=== PATIENT | female | born 1970 | race Native Hawaiian/Other Pacific Islander ===

== ENCOUNTER 2020-10-11 13:03 | Emergency (ER) | payer SELFPAY ==
[2020-10-11 16:36] LABS: Basophils % (Auto) 0.4 % (0.0-1.8); Eosinophils % (Auto) 0.8 % (0.0-4.3); Hematocrit 44.2 % (30.3-42.9); Hemoglobin 14.9 gm/dl (10.1-14.3); Lymphocytes % (Auto) 21.4 % (13.4-35.0); Mean Corpuscular HGB Conc 34 % (30-34); Mean Corpuscular Volume 92 fl (79-97); Monocytes # (Auto) 0.4 K/mm3 (0.0-0.8); Monocytes % (Auto) 7.5 % (0.0-7.3); Platelet Count 265 K/mm3 (140-440); Red Blood Count 4.83 M/mm3 (3.65-5.03); Red Cell Distribution Width 13.8 % (13.2-15.2)
[2020-10-11 16:49] LABS: Bilirubin,Urine NEG (Negative); Blood,Urine SM (Negative); Color,Urine Straw (Yellow); Protein,Urine <15 mg/dL mg/dL (Negative); Urobilinogen,Urine < 2.0 mg/dL (<2.0); WBC,Urine < 1.0 /HPF (0.0-6.0)
[2020-10-11 16:53] LABS: Alanine Aminotransferase 10 units/L (7-56); Albumin 4.6 g/dL (3.9-5); Blood Urea Nitrogen 13 mg/dL (7-17); Calcium 9.7 mg/dL (8.4-10.2); Hemolysis Index 9
[2020-10-11 16:54] LABS: BUN/Creatinine Ratio 33
--- NOTE | 2020-10-11 18:29 | Event Note ---
ED Screening Note Date of service: 10/11/20 Time: 18:28 ED Screening Note: 50-year-old female patient with history of colitis presents to the emergency department with complaints of left lower quadrant pain with associated nausea and vomiting progressively worsening for 1 week. No known sick contacts. No current steroid or antibiotic use. No recent travel. Patient was evaluated by her primary care provider, who prescribed Protonix, which has provided limited relief. Patient states she has experienced similar symptoms on prior occasions. 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 General: Awake, appropriately interactive, no acute distress. Neck: Supple. Full range of motion intact. Cardiovascular: Normal peripheral perfusion. Pulmonary: No respiratory distress. Patient is speaking normally without use of accessory muscles. Abdomen: Soft, nondistended. Left lower quadrant tenderness without rebound or guarding. Skin: No apparent rashes or lesions. Neurological: No facial asymmetry. Speech is clear. Follows commands. Patient is alert and oriented. Musculoskeletal: Moves all four extremities spontaneously with normal range of motion. Psych: Cooperative. Appropriate mood and affect. I have greeted and performed a focused rapid initial assessment of this patient. A comprehensive ED assessment and evaluation of the patient, analysis of all test results, and completion of the medical decision-making process will be conducted by additional ED providers. This initial assessment/diagnostic orders/clinical plan/treatment(s) is/are subject to change based on patients health status, clinical progression and re-assessment. Further treatment and workup at subsequent clinical provider's discretion. Patient/guardian urged not to elope from the ED as their condition may be serious if not clinically assessed and managed.
[2020-10-11] MEDS ORDERED: SODIUM CHLORIDE 0.9% 1000 ML 1,000 ML IV ONE (21:09)
[2020-10-11] MEDS ORDERED: ONDANSETRON 4 MG/2 ML INJ IV ONE (21:09)
[2020-10-11] MEDS ORDERED: MORPHINE 4 MG/1 ML INJ IV ONE (21:09)
--- NOTE | 2020-10-11 21:12 | Emergency Department Report ---
ED Abdominal Pain HPI - General Chief Complaint: Abdominal Pain Stated Complaint: AB PAIN LT SIDE/NAUSEA Time Seen by Provider: 10/11/20 21:09 Source: patient Mode of arrival: Ambulatory Limitations: No Limitations - History of Present Illness Initial Comments: Patient is 50 years old female with no significant past medical history. Patient presented to the ER complaining of left lower quadrant abdominal pain for the last 7 days. Patient stated that pain is getting worse. Patient described her pain as sharp with no radiation. Patient stated the pain associated with nausea and vomiting. Patient denied diarrhea and stated that she feel constipation. Patient also admitted chills but denied any fever. Patient stated that she was seen by her primary care physician 3 days ago and she was given Protonix but no improvement. MD Complaint: abdominal pain -: days(s) (7) Location: LLQ Radiation: none Migration to: no migration Severity scale (0 -10): 10 Quality: sharp Associated Symptoms: nausea, vomiting, constipation - Related Data Home Medications Medication Instructions Recorded Confirmed Last Taken Dicyclomine [Bentyl] 20 mg PO DAILY 03/02/13 03/02/13 03/02/13 Ferrous Sulfate [Feosol 325mg] 325 mg PO TID 03/02/13 03/02/13 03/02/13 Previous Rx's Medication Instructions Recorded Last Taken Type HYDROcodone/APAP 7.5-325 [[place] 1 each PO Q6HR PRN #20 tablet 03/03/13 Unknown Rx 7.5-325 mg TAB] Ondansetron [Zofran Odt] 4 mg PO Q4-6H PRN #12 tab.rapdis 03/03/13 Unknown Rx Allergies Allergy/AdvReac Type Severity Reaction Status Date / Time No Known Allergies Allergy Verified 03/02/13 23:21 ED Review of Systems ROS: Stated complaint: AB PAIN LT SIDE/NAUSEA Other details as noted in HPI Comment: All other systems reviewed and negative Constitutional: chills. denies: fever Respiratory: denies: cough, shortness of breath, SOB with exertion Cardiovascular: denies: chest pain, palpitations Gastrointestinal: abdominal pain, nausea, vomiting, constipation. denies: diarrhea, hematemesis, melena, hematochezia Musculoskeletal: denies: back pain Neurological: denies: headache, weakness, numbness, paresthesias, confusion ED Past Medical Hx - Past Medical History Previous Medical History?: Yes Hx Psychiatric Treatment: Yes (anxiety, depression) Additional medical history: Anemia - Surgical History Past Surgical History?: Yes Additional Surgical History: , TL - Social History Smoking Status: Never Smoker Substance Use Type: None - Medications Home Medications: Home Medications Medication Instructions Recorded Confirmed Last Taken Type Dicyclomine [Bentyl] 20 mg PO DAILY 03/02/13 03/02/13 03/02/13 History Ferrous Sulfate [Feosol 325mg] 325 mg PO TID 03/02/13 03/02/13 03/02/13 History HYDROcodone/APAP 7.5-325 [[place] 1 each PO Q6HR PRN #20 tablet 03/03/13 Unknown Rx 7.5-325 mg TAB] Ondansetron [Zofran Odt] 4 mg PO Q4-6H PRN #12 tab.rapdis 03/03/13 Unknown Rx ED Physical Exam - General Limitations: No Limitations General appearance: alert, in distress - Head Head exam: Present: atraumatic, normocephalic, normal inspection - Eye Eye exam: Present: normal appearance, PERRL - ENT ENT exam: Present: mucous membranes dry - Neck Neck exam: Present: normal inspection, full ROM. Absent: tenderness, meningismus - Respiratory Respiratory exam: Present: normal lung sounds bilaterally - Cardiovascular Cardiovascular Exam: Present: regular rate, normal rhythm, normal heart sounds - GI/Abdominal GI/Abdominal exam: Present: soft, tenderness, normal bowel sounds. Absent: distended, guarding, rebound, rigid, organomegaly, mass, bruit, pulsatile mass, hernia - Extremities Exam Extremities exam: Present: normal inspection, full ROM, normal capillary refill. Absent: tenderness - Back Exam Back exam: Present: normal inspection, full ROM. Absent: CVA tenderness (R), CVA tenderness (L) - Neurological Exam Neurological exam: Present: alert, oriented X3, CN II-XII intact, normal gait, reflexes normal. Absent: motor sensory deficit - Psychiatric Psychiatric exam: Present: normal mood - Skin Skin exam: Present: warm, intact, normal color ED Course Vital Signs 10/11/20 10/11/20 15:14 21:24 Temperature 98.7 F Pulse Rate 68 Respiratory 18 Rate Blood Pressure 140/81 [Right] O2 Sat by Pulse 100 99 Oximetry ED Medical Decision Making - Lab Data Result diagrams: 10/11/20 16:03 10/11/20 16:03 - Radiology Data Radiology results: report reviewed - Medical Decision Making Patient is 50 years old female with no significant past medical history. Patient presented to the ER complaining of left lower quadrant abdominal pain for the last 7 days. Patient stated that pain is getting worse. Patient de scribed her pain as sharp with no radiation. Patient stated the pain associated with nausea and vomiting. Patient denied diarrhea and stated that she feel constipation. Patient also admitted chills but denied any fever. Patient stated that she was seen by her primary care physician 3 days ago and she was given Protonix but no improvement. Labs reviewed and is unremarkable. Patient received morphine, Zofran and normal saline. CT abdomen pelvis showed colitis. Patient given prescription for Flagyl, ciprofloxacin, Zofran and hydrocodone. Patient advised to follow-up with her primary care physician in the next 2 to 3 days and to return to the ER if she develop any new symptoms. Critical care attestation.: If time is entered above; I have spent that time in minutes in the direct care of this critically ill patient, excluding procedure time. ED Disposition Clinical Impression: Acute abdominal pain, Acute colitis, Acute nausea with nonbilious vomiting Disposition: HOME / SELF CARE / HOMELESS Is pt being admited?: No Condition: Stable Instructions: Abdominal Pain (ED), Nausea and Vomiting, Adult, Abdominal Pain, Adult, Colitis Referrals: PRIMARY CARE,MD [Primary Care Provider] - 3-5 Days
--- NOTE | 2020-10-11 22:16 | Cat Scan Report ---
CT ABDOMEN AND PELVIS WITH CONTRAST INDICATION / CLINICAL INFORMATION: abdominal pain. TECHNIQUE: Axial CT images were obtained through the abdomen and pelvis after IV contrast. All CT sc ans at this location are performed using CT dose reduction for ALARA by means of automated exposure c ontrol. COMPARISON: None available. FINDINGS: LOWER CHEST: No significant abnormality. LIVER: No significant abnormality. GALLBLADDER: No significant abnormality. BILE DUCTS: No significant abnormality. PANCREAS: No significant abnormality. SPLEEN: No significant abnormality. ADRENALS: No significant abnormality. RIGHT KIDNEY / URETER: No significant abnormality. LEFT KIDNEY / URETER: No significant abnormality. STOMACH / SMALL BOWEL: No significant abnormality. COLON: Mild wall thickening of the distal descending colon and proximal sigmoid, possibly reflecting mild focal colitis. APPENDIX: No significant abnormality. PERITONEUM: No free fluid. No free air. No fluid collection. LYMPH NODES: No significant adenopathy. AORTA / ARTERIES: No significant abnormality. IVC / VEINS: No significant abnormality. URINARY BLADDER: No significant abnormality. REPRODUCTIVE ORGANS: No significant abnormality. ADDITIONAL FINDINGS: None. SKELETAL SYSTEM: No significant abnormality. IMPRESSION: Mild wall thickening of the distal descending and proximal sigmoid colon, possibly reflecting mild fo adamaris colitis. Otherwise, no acute abdominopelvic abnormality. Signer Name: Vadim Klein MD Signed: 10/11/2020 10:11 PM Workstation Name: [id number]
[2020-10-11 23:55] VITALS: BP 136/72
== END 2020-10-11 23:55 | disposition home or self-care (01) ==
LOC: ED 13:03
DX: K52.9 Noninfective gastroenteritis and colitis, unspecified (principal); R11.2 Nausea with vomiting, unspecified; R10.9 Unspecified abdominal pain; D64.9 Anemia, unspecified; F41.9 Anxiety disorder, unspecified; F32.9 Major depressive disorder, single episode, unspecified; Z79.899 Other long term (current) drug therapy; Z98.890 Other specified postprocedural states
CPT/HCPCS: 36415; 74177; 80053; 81001; 83690; 83735; 85025; 96361; 96374; 96375; 99284; J2270; J2405; J7030; Q9967

== ENCOUNTER 2020-10-17 12:26 | Emergency (ER) | payer SELFPAY ==
[2020-10-17] MEDS ORDERED: ASPIRIN 325 MG TAB PO ONE (12:41)
[2020-10-17 12:44] VITALS: BP 133/83
[2020-10-17 13:46] LABS: Alanine Aminotransferase 12 units/L (7-56); Albumin 4.5 g/dL (3.9-5); Blood Urea Nitrogen 4 mg/dL (7-17); Calcium 9.5 mg/dL (8.4-10.2); Hemolysis Index 5
--- NOTE | 2020-10-17 13:46 | XRay Report ---
CHEST 2 VIEWS, 10/17/2020 INDICATION: Chest pain COMPARISON: None FINDINGS: Support devices: None. Heart: The cardiac silhouette is normal in size. Lungs/pleura: The lungs are clear of focal airspace disease or significant pleural effusion. Additional findings: No significant acute abnormality. IMPRESSION: 1. No evidence of acute cardiopulmonary process. Signer Name: Mariia Martinez MD Signed: 10/17/2020 1:41 PM Workstation Name: [id number]
[2020-10-17 13:50] LABS: BUN/Creatinine Ratio 7
[2020-10-17 13:52] LABS: Hematocrit 44.4 % (30.3-42.9); Hemoglobin 15.2 gm/dl (10.1-14.3); Mean Corpuscular HGB Conc 34 % (30-34); Mean Corpuscular Volume 90 fl (79-97); Platelet Count 239 K/mm3 (140-440); Red Blood Count 4.94 M/mm3 (3.65-5.03); Red Cell Distribution Width 13.9 % (13.2-15.2)
[2020-10-17 17:11] LABS: Total Cells Counted 100
[2020-10-17 17:14] LABS: RBC Morphology Normal
--- NOTE | 2020-10-18 00:17 | Emergency Department Report ---
ED Chest Pain HPI - General Chief Complaint: Chest Pain Stated Complaint: CP/SHWETA Time Seen by Provider: 10/17/20 18:54 Source: patient Mode of arrival: Ambulatory Limitations: No Limitations - History of Present Illness Initial Comments: Patient is a 50-year-old female with a history of anxiety and depression who is currently on oral antibiotics for recent diagnosis of colitis presents to the ED with complaint of acute onset persistent constant substernal chest pain that radiates to the mid posterior thoracic area with persistent back pain for the last 12 hours. Patient states that the pain is especially worse with movement, palpation of the chest wall with deep inhalation. Patient states that the back pain has been persistent and attributes this to the fact that she has not been eating any food but has been taking soup after being advised to only eat soup while taking oral antibiotics, metronidazole 500 mg 3 times a day and ciprofloxacin 500 mg twice a day. Patient also states that she has not had any appetite since he started taking these antibiotics. Patient denies diaphoresis, shortness of breath, dizziness, palpitations, change in vision, neck pain, traumatic injury, heavy lifting, change in vision, numbness and tingl ing or weakness of upper and lower extremities bilaterally, neck pain or headache, cough, fever and chills, nausea and vomiting or abdominal pain. MD Complaint: chest pain (substernal chest wall pain that radiates to the mid posterior thoracic area), other (Persistent burping) -: Sudden, hour(s) (12) Onset: during rest Pain Location: substernal Pain Radiation: back (Mid posterior thoracic pain) Severity: moderate Severity scale (0 -10): 6 Quality: aching, sharp Consistency: constant Improves With: nothing Worsens With: palpation re: denies: nausea, vomting, diaphoresis, dyspnea, sense of impending doom Treatments Prior to Arrival: none Aspirin use within the Past 7 Days: (0) No - Related Data On Oral Contraceptives: No Home Medications Medication Instructions Recorded Confirmed Last Taken Dicyclomine [Bentyl] 20 mg PO DAILY 03/02/13 03/02/13 03/02/13 Ferrous Sulfate [Feosol 325mg] 325 mg PO TID 03/02/13 03/02/13 03/02/13 Previous Rx's Medication Instructions Recorded Last Taken Type HYDROcodone/APAP 7.5-325 [[place] 1 each PO Q6HR PRN #20 tablet 03/03/13 Unknown Rx 7.5-325 mg TAB] Ondansetron [Zofran Odt] 4 mg PO Q4-6H PRN #12 tab.rapdis 03/03/13 Unknown Rx Ciprofloxacin HCl 500 mg PO BID 10 Days #14 tablet 10/11/20 Unknown Rx HYDROcodone/APAP 5-325 [[place] 1 each PO Q6HR PRN #14 tablet 10/11/20 Unknown Rx 5/325] Ondansetron [Zofran Odt] 4 mg PO Q8HR PRN #14 tab.rapdis 10/11/20 Unknown Rx metroNIDAZOLE [Flagyl] 500 mg PO Q12HR #14 tab 10/11/20 Unknown Rx Famotidine [Pepcid] 20 mg PO Q12H #60 tablet 10/18/20 Unknown Rx Naproxen 375 mg PO Q12H PRN #24 tablet 10/18/20 Unknown Rx Allergies Allergy/AdvReac Type Severity Reaction Status Date / Time No Known Allergies Allergy Verified 03/02/13 23:21 Heart Score - HEART Score History: Slightly suspicious EKG: Normal Age: 45-65 Risk factors: No known risk factors Troponin: < normal limit HEART Score: 1 - EKG Read Time Time EKG Completed: 12:48 EKG Read Time: 12:55 - Critical Actions Critical Actions: 0-3 pts:0.9-1.7%risk of adverse cardiac event.Candidate for discharge ED Review of Systems ROS: Stated complaint: CP/SHWETA Other details as noted in HPI Constitutional: denies: chills, fever Eyes: denies: eye pain, eye discharge, vision change ENT: denies: ear pain, throat pain Respiratory: denies: cough, shortness of breath, wheezing Cardiovascular: chest pain (Substernal chest pain that radiates to the mid posterior thoracic area). denies: palpitations Endocrine: no symptoms reported Gastrointestinal: other (Persistent burping). denies: abdominal pain, nausea, vomiting, diarrhea Genitourinary: denies: urgency, dysuria, frequency, hematuria, discharge, abnormal menses, dyspareunia Musculoskeletal: back pain (Mid posterior thoracic pain). denies: joint s welling, arthralgia Skin: denies: rash, lesions Neurological: denies: headache, weakness, paresthesias Psychiatric: anxiety. denies: depression Hematological/Lymphatic: denies: easy bleeding, easy bruising ED Past Medical Hx - Past Medical History Previous Medical History?: Yes Hx Psychiatric Treatment: Yes (anxiety, depression) Additional medical history: Anemia - Surgical History Past Surgical History?: Yes Additional Surgical History: , TL - Social History Smoking Status: Never Smoker Substance Use Type: None - Medications Home Medications: Home Medications Medication Instructions Recorded Confirmed Last Taken Type Dicyclomine [Bentyl] 20 mg PO DAILY 03/02/13 03/02/13 03/02/13 History Ferrous Sulfate [Feosol 325mg] 325 mg PO TID 03/02/13 03/02/13 03/02/13 History HYDROcodone/APAP 7.5-325 [[place] 1 each PO Q6HR PRN #20 tablet 03/03/13 Unknown Rx 7.5-325 mg TAB] Ondansetron [Zofran Odt] 4 mg PO Q4-6H PRN #12 tab.rapdis 03/03/13 Unknown Rx Ciprofloxacin HCl 500 mg PO BID 10 Days #14 tablet 10/11/20 Unknown Rx HYDROcodone/APAP 5-325 [[place] 1 each PO Q6HR PRN #14 tablet 10/11/20 Unknown Rx 5/325] Ondansetron [Zofran Odt] 4 mg PO Q8HR PRN #14 tab.rapdis 10/11/20 Unknown Rx metroNIDAZOLE [Flagyl] 500 mg PO Q12HR #14 tab 10/11/20 Unknown Rx Famotidine [Pepcid] 20 mg PO Q12H #60 tablet 10/18/20 Unknown Rx Naproxen 375 mg PO Q12H PRN #24 tablet 10/18/20 Unknown Rx ED Physical Exam - General Limitations: No Limitations General appearance: alert, in no apparent distress, anxious - Head Head exam: Present: atraumatic, normocephalic, normal inspection - Eye Eye exam: Present: normal appearance, PERRL, EOMI Pupils: Present: normal accommodation - ENT ENT exam: Present: normal exam, normal orophraynx, mucous membranes moist, TM's normal bilaterally, normal external ear exam - Neck Neck exam: Present: normal inspection, full ROM - Respiratory Respiratory exam: Present: normal lung sounds bilaterally, chest wall tenderness (Palpable reproducible anterior chest wall tenderness). Absent: respiratory distress, wheezes, rales, rhonchi, accessory muscle use, decreased breath sounds - Cardiovascular Cardiovascular Exam: Present: normal rhythm, tachycardia, normal heart sounds. Absent: systolic murmur, diastolic murmur, rubs, gallop - GI/Abdominal GI/Abdominal exam: Present: soft, normal bowel sounds. Absent: tenderness, guarding, rebound, hyperactive bowel sounds, hypoactive bowel sounds, organomegaly - Extremities Exam Extremities exam: Present: normal inspection, full ROM, normal capillary refill - Back Exam Back exam: Present: normal inspection, full ROM. Absent: tenderness, CVA tenderness (R), CVA tenderness (L), muscle spasm, paraspinal tenderness, ve rtebral tenderness - Neurological Exam Neurological exam: Present: alert, oriented X3, CN II-XII intact, normal gait, reflexes normal - Psychiatric Psychiatric exam: Present: normal affect, anxious, flat affect - Skin Skin exam: Present: warm, dry, intact, normal color. Absent: rash ED Course Vital Signs 10/17/20 10/18/20 12:43 00:37 Temperature 98.4 F Pulse Rate 112 H 63 Respiratory 18 18 Rate Blood Pressure 133/83 [Right] O2 Sat by Pulse 98 98 Oximetry SHADI score - Shadi Score Age > 65: (0) No Aspirin use within the Past 7 Days: (0) No 3 or more CAD Risk Factors: (0) No 2 or more Angina events in past 24 hrs: (0) No Known CAD with more than 50% Stenosis: (0) No Elevated Cardiac Markers: (0) No ST Deviation Greater than 0.5mm: (0) No SHADI Score: 0 ED Medical Decision Making - Lab Data Result diagrams: 10/17/20 13:00 10/17/20 13:00 - EKG Data EKG shows normal: sinus rhythm Rate: normal - EKG Data Interpretation: normal EKG 10/18/20 00:36 EKG shows normal sinus rhythm with a ventricular rate of [address] or T wave abnormalities - Radiology Data Radiology results: report reviewed, image reviewed Chest x-ray shows no acute cardiopulmonary abnormalities or pneumonitis. - Medical Decision Making This is a 50-year-old female with a history of anxiety and depression who is currently on oral antibiotics for recent diagnosis of colitis presents to the ED with complaint of acute onset persistent constant substernal chest pain that radiates to the mid posterior thoracic area with persistent back pain for the last 12 hours. Patient states that the pain is especially worse with movement, palpation of the chest wall with deep inhalation. Patient states that the back pain has been persistent and attributes this to the fact that she has not been eating any food but has been taking soup after being advised to only eat soup while taking oral antibiotics, metronidazole 500 mg 3 times a day and ciprofloxacin 500 mg twice a day. Patient also states that she has not had any appetite since he started taking these antibiotics. In the ED, patient is alert and oriented x3 and is not in any distress. Patient is however tachycardic, anxious and afebrile in triage. Lab test results were reviewed and are all nonactionable including the initial, 3 hours and 4-hour troponin levels. Chest x-ray shows no acute cardiopulmonary abnormalities or pneumonitis. EKG shows normal sinus rhythm with a ventricular rate of [address] or T wave abnormalities. Patient's heart score is 1 for her age, and patient symptoms are reproducible on physical exam. Patient has not been eating any solid foods but just drinking soup for the last 10 days while taking oral antibiotics. Based on the history and physical exam findings, as well as lab test results and patient's cardiac risk factors, patient symptoms are likely due to costochondritis, GERD and persistent anxiety. Patient was treated in the ED with anxiety medications and antacids as well as pain medications. Patient was therefore discharged home on pain medications and antacid prescriptions and advised to follow-up with her primary care physician in 3 to 5 days for reevaluation or return to the ED immediately if symptoms get worse. - Differential Diagnosis ACS; PE; pneumonia; GERD; costochondritis; anxiety; muscle strain Critical care attestation.: If time is entered above; I have spent that time in minutes in the direct care of this critically ill patient, excluding procedure time. ED Disposition Clinical Impression: Acute nonspecific chest pain with low risk of coronary artery disease, Acute costochondritis, Anxiety as acute reaction to exceptional stress GERD (gastroesophageal reflux disease) Qualifiers: Esophagitis presence: esophagitis presence not specified Qualified Code(s): K21.9 - Gastro-esophageal reflux disease without esophagitis Disposition: HOME / SELF CARE / HOMELESS Is pt being admited?: No Does the pt Need Aspirin: No Condition: Stable Instructions: Costochondritis, [id number], Heartburn, [id number], Chest Wall Pain, [id number], Nonspecific Chest Pain, Adult, [id number], Gastroesophageal Reflux Disease, Adult, [id number], Chest Pain (ED) Additional Instructions: Todos los resultados de las pruebas de laboratorio fueron revisados ??y no son factibles. La radiografa de trax no muestra anomalas cardiopulmonares agudas ni neumonitis. Es probable que melvin sntomas se deban a distensin muscular o costocondritis, reflujo cido o ERGE y empeoran por vincent condicin de ansiedad. Por lo tanto, tome la medicacin con alimentos, stella muchos lquidos y charito un seguimiento con vincent mdico de atencin primaria en 5 a 7 [place] para cailin reevaluacin. Regrese al servicio de urgencias de inmediato si los sntomas empeoran. Prescriptions: Naproxen 375 mg PO Q12H PRN #24 tablet PRN Reason: Pain , Severe (7-10) Famotidine [Pepcid] 20 mg PO Q12H #60 tablet Referrals: [facility] [Provider Group] - 3-5 Days Time of Disposition: 00:30 Print Language: CYMRAES
[2020-10-18] MEDS ORDERED: clonazePAM 0.5 MG TAB PO ONE (00:33)
[2020-10-18] MEDS ORDERED: ACETAMINOPHEN 325 MG TAB PO ONE (00:33)
[2020-10-18] MEDS ORDERED: FAMOTIDINE 20 MG TAB PO ONE (00:33)
--- NOTE | 2020-10-21 08:45 | Electrocardiograph Report ---
[facility] Test Date: 2020-10-17 Test Time: 12:48:46 Pat Name: ANTONINO SCRUGGS Department: Room: Gender: F Naturopathic Doctor: COURTNEY : 1970 Requested By: ED DOC Order Number: [id number] Reading MD: Kit Mayorga Measurements Intervals [place] Rate: 91 P: 0 [place]: 67 QRS: 33 QRSD: 83 T: 33 QT: 369 QTc: 456 Interpretive Statements Sinus rhythm nonspecific st-t No previous ECG available for comparison Electronically Signed On 10-21-2020 8:45:40 EDT by Kit Mayorga
== END 2020-10-18 02:42 | disposition home or self-care (01) ==
LOC: ED 12:26
DX: F41.1 Generalized anxiety disorder (principal); F43.0 Acute stress reaction; M94.0 Chondrocostal junction syndrome [Tietze]; K21.9 Gastro-esophageal reflux disease without esophagitis; R07.89 Other chest pain; D64.9 Anemia, unspecified; F32.9 Major depressive disorder, single episode, unspecified; Z79.899 Other long term (current) drug therapy; Z98.890 Other specified postprocedural states
CPT/HCPCS: 36415; 71046; 80053; 84484; 85007; 85025; 93005